=== PATIENT | male | born 1940 | race Caucasian/White ===

== ENCOUNTER 2020-09-09 16:05 | Emergency (ER) | payer MEDICARE ==
[2020-09-09 16:41] LABS: #Basophils 0.2 thou/uL (0.0-0.2); #Eosinphils 0.3 thou/uL (0.0-0.7); #Lymphocytes 3.4 thou/uL (1.20-3.40); #Monocytes 1.2 thou/uL (0.11-0.59); #Neutrophils 8.8 thou/uL (1.40-6.50); %Basophils 1.3 % (0.0-1.0); %Eosinophils 1.9 % (0.0-10.0); %Lymphocytes 24.4 % (21.0-51.0); %Neutrophils 63.4 % (42.0-75.0); Mean Corpuscular HGB CONC 32.3 g/dL (32.0-36.0); Mean Corpuscular Hemoglobin 30.9 pg (27.0-31.0); Mean Corpuscular Volume 95.6 fL (78.0-98.0); Platelet Count 397 thou/uL (130-400); RBC Distribution Width 13.1 % (11.5-14.5); Red Blood Cell (RBC) Count 4.55 mill/uL (4.70-6.10); White Blood Cell (WBC) Count 13.8 thou/uL (4.8-10.8)
[2020-09-09 16:56] LABS: ALT (SGPT) 24 U/L (8-55); AST (SGOT) 25 U/L (5-34); Albumin 4.2 g/dL (3.4-4.8); Alkaline Phosphatase 37 U/L (40-110); Anion Gap 16 mmol/L (10-20); BUN (Urea Nitrogen) 36 mg/dL (8.4-25.7); Bilirubin, Total 0.5 mg/dL (0.2-1.2); Calc. Creatinine Clearance 0 mL/min (70-130); Calcium 9.4 mg/dL (7.8-10.44); Carbon Dioxide 19 mmol/L (23-31); Chloride 108 mmol/L (98-107); Globulin 2.5 g/dL (2.4-3.5); Glucose 132 mg/dL (83-110); Magnesium 2.1 mg/dL (1.6-2.6); Potassium 4.1 mmol/L (3.5-5.1); Protein, Total 6.7 g/dL (5.8-8.1); Sodium 139 mmol/L (136-145)
[2020-09-09 17:13] LABS: CKMB 1.6 ng/mL (0-6.6)
[2020-09-09] MEDS ORDERED: Aspirin Chewable 81 MG TAB ONE (18:45)
== END 2020-09-09 22:52 | disposition short-term general hospital (02) ==
LOC: MADERS 16:05
DX: R55 Syncope and collapse (principal); N19 Unspecified kidney failure; R79.89 Other specified abnormal findings of blood chemistry; I10 Essential (primary) hypertension; M19.90 Unspecified osteoarthritis, unspecified site; Z79.82 Long term (current) use of aspirin; Z79.899 Other long term (current) drug therapy
CPT/HCPCS: 36415; 71045; 80053; 82553; 83735; 83880; 84484; 85025; 93005

== ENCOUNTER 2022-03-06 00:07 | Emergency (ER) | payer MEDICARE ==
[2022-03-06 00:40] LABS: #Basophils 0.1 thou/uL (0.0-0.2); #Eosinphils 0.5 thou/uL (0.0-0.7); #Lymphocytes 3.1 thou/uL (1.20-3.40); #Monocytes 1.4 thou/uL (0.11-0.59); #Neutrophils 7.1 thou/uL (1.40-6.50); %Basophils 1.1 % (0.0-1.0); %Eosinophils 4.1 % (0.0-10.0); %Lymphocytes 25.1 % (21.0-51.0); %Monocytes 11.7 % (0.0-10.0); %Neutrophils 57.9 % (42.0-75.0); Hemoglobin 13.2 g/dL (14.0-18.0); Mean Corpuscular HGB CONC 33.3 g/dL (32.0-36.0); Mean Corpuscular Hemoglobin 30.6 pg (27.0-31.0); Mean Corpuscular Volume 91.9 fl (78.0-98.0); Mean Platelet Volume 7.3 fL (7.4-10.4); Platelet Count 343 10x3/uL (130-400); RBC Distribution Width 13.4 % (11.5-14.5); Red Blood Cell (RBC) Count 4.32 mill/uL (4.70-6.10); White Blood Cell (WBC) Count 12.3 10x3/uL (4.8-10.8)
[2022-03-06 01:21] LABS: ALT (SGPT) 19 U/L (8-55); AST (SGOT) 28 U/L (5-34); Albumin 3.9 g/dL (3.4-4.8); Alkaline Phosphatase 53 U/L (40-110); Anion Gap 15 mmol/L (10-20); BUN (Urea Nitrogen) 31 mg/dL (8.4-25.7); Bilirubin, Total 0.4 mg/dL (0.2-1.2); Calc. Creatinine Clearance 0 mL/min (70-130); Calcium 9.3 mg/dL (7.8-10.44); Carbon Dioxide 20 mmol/L (23-31); Chloride 108 mmol/L (98-107); Estimated GFR 36; Globulin 2.9 g/dL (2.4-3.5); Glucose 120 mg/dL (83-110); Potassium 4.2 mmol/L (3.5-5.1); Protein, Total 6.8 g/dL (5.8-8.1); Sodium 139 mmol/L (136-145)
[2022-03-06 03:07] LABS: Bilirubin Negative (Negative); Blood, Urine Negative (Negative); Clarity Clear (Clear); Glucose, Urine (Dipstick) Negative (Negative); Ketone, Urine Negative (Negative); Leukocyte Negative (Negative); Nitrite Negative (Negative); Protein, Urine (Dipstick) 100 mg/dL (Neg-Trace); RBC/HPF 0-3 HPF (0-3); Specific Gravity, Urine 1.025 (1.005-1.030); Squamous Epithelial 0-3 HPF (0-3); Urobilinogen 0.2 mg/dL (Less than 2); WBC/HPF 0-3 HPF (0-3)
== END 2022-03-06 05:19 | disposition home or self-care (01) ==
LOC: MADERS 00:07
DX: M54.50 Low back pain, unspecified (principal); K80.20 Calculus of gallbladder without cholecystitis without obstruction; K59.00 Constipation, unspecified; N28.1 Cyst of kidney, acquired; D72.829 Elevated white blood cell count, unspecified; I10 Essential (primary) hypertension; M19.90 Unspecified osteoarthritis, unspecified site; Z79.899 Other long term (current) drug therapy
CPT/HCPCS: 36415; 74176; 80053; 81003; 81015; 83735; 85025; 87086; 93005

== ENCOUNTER 2023-03-08 14:22 | Emergency (ER) | payer MEDICARE ==
[2023-03-08] MEDS ORDERED: Ipratropium/Albuterol 3 ML NEB ONE (15:23)
[2023-03-08] MEDS ORDERED: Boostrix 0.5 ML (Tdap) VIAL (>/=7 yrs of age) ONE (15:24)
[2023-03-08] MEDS ORDERED: Vancomycin 1 GM VIAL ONE (15:24)
[2023-03-08] MEDS ORDERED: methylPREDNISolone Sod Succ/PF 125 MG/2 ML VIAL ONE (15:24)
[2023-03-08] MEDS ORDERED: Sterile Water 10 ML ONE ×2 (15:27→15:34)
[2023-03-08] MEDS ORDERED: Morphine 2 MG/ML VIAL ONE (16:37)
[2023-03-08] MEDS ORDERED: Furosemide 40 MG (4 mL) VIAL ONE (16:37)
[2023-03-08] MEDS ORDERED: Aspirin Chewable 81 MG TAB ONE (16:38)
[2023-03-08 16:43] LABS: #Basophils 0.1 thou/uL (0.0-0.2); #Eosinphils 0.1 thou/uL (0.0-0.7); #Lymphocytes 1.7 thou/uL (1.20-3.40); #Monocytes 1.4 thou/uL (0.11-0.59); #Neutrophils 11.8 thou/uL (1.40-6.50); %Basophils 0.8 % (0.0-1.0); %Eosinophils 0.7 % (0.0-10.0); %Lymphocytes 11.3 % (21.0-51.0); %Neutrophils 78.1 % (42.0-75.0); Hematocrit 39.9 % (42.0-52.0); Hemoglobin 12.7 g/dL (14.0-18.0); Mean Corpuscular HGB CONC 31.9 g/dL (32.0-36.0); Mean Corpuscular Hemoglobin 28.9 pg (27.0-31.0); Mean Corpuscular Volume 90.5 fl (78.0-98.0); Mean Platelet Volume 6.9 fL (7.4-10.4); Platelet Count 389 10x3/uL (130-400); RBC Distribution Width 14.7 % (11.5-14.5); Red Blood Cell (RBC) Count 4.41 mill/uL (4.70-6.10); White Blood Cell (WBC) Count 15.2 10x3/uL (4.8-10.8)
[2023-03-08 16:45] LABS: ALT (SGPT) 17 U/L (8-55); AST (SGOT) 25 U/L (5-34); Albumin 3.3 g/dL (3.4-4.8); Alkaline Phosphatase 112 U/L (40-110); Anion Gap 17 mmol/L (10-20); BUN (Urea Nitrogen) 21 mg/dL (8.4-25.7); Bilirubin, Total 1.1 mg/dL (0.2-1.2); Calc. Creatinine Clearance 0 mL/min (70-130); Carbon Dioxide 17 mmol/L (23-31); Chloride 108 mmol/L (98-107); Estimated GFR 47; Globulin 3.5 g/dL (2.4-3.5); Glucose 119 mg/dL (83-110); INR-International Normal Ratio 1.1; Lipase 6 U/L (8-78); PTT 31.3 sec (22.9-36.1); Potassium 3.7 mmol/L (3.5-5.1); Protein, Total 6.8 g/dL (5.8-8.1); Prothrombin Time 14.8 sec (12.0-14.7); Sodium 138 mmol/L (136-145)
[2023-03-08 16:46] LABS: Troponin I 0.079 ng/mL (< 0.028)
[2023-03-08] MEDS ORDERED: Ipratropium Bromide 2.5 ml Neb ONE (18:14)
[2023-03-08] MEDS ORDERED: Albuterol 2.5 MG (0.5 mL) NEB ONE (18:14)
[2023-03-08] MEDS ORDERED: Isosorbide Mononitrate 30 MG ER.TAB PO SCH (19:00)
[2023-03-08] MEDS ORDERED: dilTIAZem CD 120 MG CAP PO SCH (19:00)
[2023-03-08] MEDS ORDERED: Enoxaparin 30 MG (0.3 mL) SYRINGE ONE (19:28)
[2023-03-08 21:16] LABS: Troponin I 0.083 ng/mL (< 0.028)
[2023-03-08 22:51] LABS: Troponin I 0.079 ng/mL (< 0.028)
[2023-03-09] MEDS ORDERED: Sodium Chloride 0.9% 100 ML ONE ×2 (00:49→07:39)
[2023-03-09] MEDS ORDERED: Vancomycin 1 GM VIAL ONE (03:44)
[2023-03-09] MEDS ORDERED: Sodium Chloride 0.9% 250 ML 250 ML ONE (03:46)
[2023-03-09] MEDS ORDERED: Ipratropium/Albuterol 3 ML NEB ONE (05:55)
[2023-03-09] MEDS ORDERED: Enoxaparin 30 MG (0.3 mL) SYRINGE ONE (07:39)
== END 2023-03-09 10:00 | disposition home or self-care (01) ==
LOC: MADERS 14:22
DX: I13.2 Hypertensive heart and chronic kidney disease with heart failure and with stage 5 chronic kidney disease, or end stage renal disease (principal); N18.5 Chronic kidney disease, stage 5; I50.9 Heart failure, unspecified; I48.91 Unspecified atrial fibrillation; I16.0 Hypertensive urgency; R79.89 Other specified abnormal findings of blood chemistry; R22.31 Localized swelling, mass and lump, right upper limb; Z79.82 Long term (current) use of aspirin; Z79.899 Other long term (current) drug therapy
CPT/HCPCS: 36415; 70450; 71045; 72125; 80053; 83605; 83690; 83880; 84443; 84484; 85025; 85610; 85730; 87040; 90715; 93005; 94760; 96365; 96367; 96372; 96375; 96376; J0457; J1650; J1940; J2272; J2930; J3370; J3490; J7050; J7611; J7620

== ENCOUNTER 2023-04-11 11:59 | Emergency (ER) | payer MEDICARE ==
[2023-04-11 13:14] LABS: #Basophils 0.1 thou/uL (0.0-0.2); #Eosinphils 0.2 thou/uL (0.0-0.7); #Lymphocytes 2.9 thou/uL (1.20-3.40); #Neutrophils 8.5 thou/uL (1.40-6.50); %Eosinophils 1.2 % (0.0-10.0); %Lymphocytes 22.7 % (21.0-51.0); %Monocytes 7.5 % (0.0-10.0); %Neutrophils 67.6 % (42.0-75.0); Hematocrit 39.6 % (42.0-52.0); Hemoglobin 12.5 g/dL (14.0-18.0); Mean Corpuscular HGB CONC 31.6 g/dL (32.0-36.0); Mean Corpuscular Hemoglobin 27.9 pg (27.0-31.0); Mean Corpuscular Volume 88.2 fl (78.0-98.0); Mean Platelet Volume 6.6 fL (7.4-10.4); Platelet Count 379 10x3/uL (130-400); RBC Distribution Width 15.8 % (11.5-14.5); Red Blood Cell (RBC) Count 4.49 mill/uL (4.70-6.10); White Blood Cell (WBC) Count 12.6 10x3/uL (4.8-10.8)
[2023-04-11 13:46] LABS: ALT (SGPT) 30 U/L (8-55); AST (SGOT) 27 U/L (5-34); Albumin 2.9 g/dL (3.4-4.8); Alkaline Phosphatase 149 U/L (40-110); Anion Gap 15 mmol/L (10-20); BUN (Urea Nitrogen) 17 mg/dL (8.4-25.7); Bilirubin, Total 0.8 mg/dL (0.2-1.2); Calc. Creatinine Clearance 0 mL/min (70-130); Calcium 8.4 mg/dL (7.8-10.44); Carbon Dioxide 20 mmol/L (23-31); Chloride 108 mmol/L (98-107); Estimated GFR 50; Globulin 3.2 g/dL (2.4-3.5); Glucose 132 mg/dL (83-110); Magnesium 1.9 mg/dL (1.6-2.6); Potassium 3.5 mmol/L (3.5-5.1); Protein, Total 6.1 g/dL (5.8-8.1); Sodium 139 mmol/L (136-145)
[2023-04-11 13:53] LABS: Troponin I 0.063 ng/mL (< 0.028)
[2023-04-11 15:43] LABS: Bilirubin Negative (Negative); Blood, Urine Negative (Negative); Clarity Clear (Clear); Glucose, Urine (Dipstick) Negative (Negative); Ketone, Urine Negative (Negative); Leukocyte Negative (Negative); Nitrite Negative (Negative); Protein, Urine (Dipstick) > or equal to 300 mg/dL (Neg-Trace); Specific Gravity, Urine 1.025 (1.005-1.030); Urobilinogen 0.2 mg/dL (Less than 2); pH, Urine 6.5 (5.0-9.0)
[2023-04-11 15:58] LABS: CAUTI Indications for Culture Alt mental st,lethar; RBC/HPF None Seen HPF (0-3); Squamous Epithelial 0-3 HPF (0-3); WBC/HPF 0-3 HPF (0-3)
[2023-04-11 15:59] LABS: Urine Culture Reflex No No
[2023-04-11] MEDS ORDERED: Aspirin Chewable 81 MG TAB ONE (16:06)
[2023-04-11] MEDS ORDERED: Furosemide 40 MG (4 mL) VIAL ONE (16:06)
[2023-04-11 16:51] LABS: Lactic Acid 2.6 mmol/L (0.5-2.2)
[2023-04-11 17:48] LABS: Troponin I 0.055 ng/mL (< 0.028)
[2023-04-12 07:12] LABS: Troponin I 0.097 ng/mL (< 0.028)
[2023-04-12] MEDS ORDERED: Metoprolol Tartrate 50 MG TAB ONE (08:15)
[2023-04-12] MEDS ORDERED: Atorvastatin Calcium 10 MG TAB PO SCH (08:30)
[2023-04-12] MEDS ORDERED: Furosemide 20 MG (2 mL) VIAL ONE ×2 (09:22→09:32)
== END 2023-04-12 09:29 | disposition short-term general hospital (02) ==
LOC: MADERS 11:59
DX: I11.0 Hypertensive heart disease with heart failure (principal); I50.9 Heart failure, unspecified; E87.20 Acidosis, unspecified; R79.89 Other specified abnormal findings of blood chemistry; F03.90 Unspecified dementia, unspecified severity, without behavioral disturbance, psychotic disturbance, mood disturbance, and anxiety; E78.5 Hyperlipidemia, unspecified; N40.0 Benign prostatic hyperplasia without lower urinary tract symptoms; Z79.899 Other long term (current) drug therapy
CPT/HCPCS: 51701; 71045; 80053; 81001; 83605; 83735; 83880; 84484; 85025; 93005; 96374; 96376; J1940